=== PATIENT | female | born 1985 | race Caucasian/White ===

== ENCOUNTER 2019-05-19 07:01 | Inpatient (IN) | payer BC ==
[2019-05-19] VITALS (45 sets, daily range): BP systolic 100–155; BP diastolic 50–84; PULSE 69–112; TEMP 97.9–98.7
[~2019-05-19] VITALS: Ht 160 cm; Wt 75.5 kg
[~2019-05-19 07:01] MED LIST: DICLEGIS; IBU600 MG PO; IMODIUM 2MG CAPS2 MG PO; IRON325 M2 PO; PERCOCET 325 MG1 TA2 PO; PRENATAL1 TA1 PO
[2019-05-19] MEDS ORDERED: TYLENOL PM EXTR1 TA1 PO (07:34)
[2019-05-19 08:13] LABS: BASO % 0.3 % (0.0-2.0); EOS # 0.1 (0.0-0.7); EOS % 1.1 % (0-4.0); GRAN # 6.4 (1.4-6.5); GRAN % 62.7 % (42.2-75.2); HEMATOCRIT 38.4 % (37.0-47.0); HEMOGLOBIN 12.7 g/dl (12.5-16.0); LYMPH # 2.8 (1.2-3.4); LYMPH % 27.8 % (20.0-51.0); MEAN CELL VOLUME 88 fl (80.0-100.0); MEAN CORPUSCULAR HEMOGLOBIN 29 pg (27.0-31.0); MEAN CORPUSCULAR HGB CONC 33 g/dl (33.0-37.0); MEAN PLATELET VOLUME 13.6 fl (7.4-10.4); MONO # 0.8 (0.1-0.6); MONO % 7.4 % (1.7-9.3); PLATELET COUNT 224 K/mm3 (130-400); RED BLOOD COUNT 4.37 M/mm3 (4.10-5.30); REDCELL DISTRIBUTION WIDTH-CV 13.2 % (11.5-14.5)
--- NOTE | 2019-05-19 16:12 | NUR ---
BY DR BROWN. TO MOTHERS CHEST. FATHER OF BABY CUT CORD, TO CARE OF RUBINA LAMBERT. PLACENTA EXPRESSED AT 1638. PITOCIN AT 333 MLS/ HR. FUNDAL MASSAGE PROVIDED. PROLAPSED CERVIX NOTED BY DR BROWN. 2ND DEGREE LACERATION REPAIRED BY DR BROWN. DENZEL CARE AND ICE PACK PROVIDED TO PATIENT. RECOVERY STARTED AT 1700.
--- NOTE | 2019-05-19 19:05 | NUR ---
Epidural dc'd. Pt moves self to edge of bed, then states "I really don't feel very good" Denies diziness or nausea. Ambulates to bathroom with slightly unsteady gait and standby assist of 2. Unable to void at this time. To post- room via wheelchair.
[2019-05-20 01:00] VITALS: BP 128/76; PULSE 98; TEMP 98.6
[2019-05-20 07:09] LABS: HEMOGLOBIN 10.9 g/dl (12.5-16.0)
[2019-05-20 07:12] LABS: HEMATOCRIT 33.4 % (37.0-47.0)
[2019-05-20 08:15] VITALS: BP 105/69; PULSE 87; TEMP 98.6
[2019-05-20] MEDS ORDERED: MOTRIN 600600 MG/TAB PO (08:32)
[2019-05-20] MEDS ORDERED: PERCOCET 325 MG1 TA2 PO (08:32)
--- NOTE | 2019-05-20 10:15 | NUR ---
Initial visit; Parents thanked Harvesting Supervisor for offering congratulations and God's blessings for the of their son. Harvesting Supervisor thanked family for choosing [place]
[2019-05-20 12:23] VITALS: BP 123/70; PULSE 95
[2019-05-20 16:15] VITALS: BP 114/73; PULSE 92; TEMP 98.5
[2019-05-20 21:20] VITALS: BP 113/69; PULSE 85; TEMP 97.7
--- NOTE | 2019-05-21 08:00 | NUR ---
Rests in bed, alert. Denies any needs at this time. States just took a shower.
[2019-05-21 08:45] VITALS: BP 110/81; PULSE 87; TEMP 97.6
== END 2019-05-21 16:45 | disposition home or self-care (01) | DRG 807 ==
LOC: LDR 07:01 → OB 19:20
PROVIDERS: ADMIT Obstetrics & Gynecology
PROC: 10E0XZZ Delivery of Products of Conception, External Approach (ICD-10-PCS; principal; 2019-05-19)
PROC: 10D17Z9 Manual Extraction of Products of Conception, Retained, Via Natural or Artificial Opening (ICD-10-PCS; 2019-05-19)
PROC: 0KQM0ZZ Repair Perineum Muscle, Open Approach (ICD-10-PCS; 2019-05-19)
PROC: 3E033VJ Introduction of Other Hormone into Peripheral Vein, Percutaneous Approach (ICD-10-PCS; 2019-05-19)
PROC: 10907ZC Drainage of Amniotic Fluid, Therapeutic from Products of Conception, Via Natural or Artificial Opening (ICD-10-PCS; 2019-05-19)
DX: O36.63X0 Maternal care for excessive fetal growth, third trimester, not applicable or unspecified (principal); Z37.0 Single live birth; O70.1 Second degree perineal laceration during delivery; Z3A.39 39 weeks gestation of pregnancy
CPT/HCPCS: J2590; J2795; J7120